=== PATIENT | male | born 1955 | race Caucasian/White ===

== ENCOUNTER 2016-10-05 10:45 | Day surgery (SDC) | payer BC ==
[2016-10-04 08:31] VITALS: BMI 33.0
[~2016-10-05 10:45] MED LIST: LACTATED RINGERS 1,000 ML IV SCH
[2016-10-05 12:09] VITALS: TEMP 97.8
[2016-10-05 12:10] LABS: Glucose,Whole Blood 110 mg/dL (75-99)
[2016-10-05] MEDS ORDERED: LIDOCAINE 1% 20 ML VIAL (10MG/ML) FOR IV START INTRADERMA ONE (12:10)
[2016-10-05] MEDS ORDERED: PROPOFOL 10 MG/ML 20 ML VIAL IV ONE (12:20)
[2016-10-05] MEDS ORDERED: LIDOCAINE 1% INJ 10MG/ML (20 ML MDV) ONE (12:20)
--- NOTE | 2016-10-05 13:02 | P.PCN ---
Date of Procedure: 10/05/16 Procedure(s) Performed: Procedure: Total colonoscopy. Preoperative diagnosis: Intermittent rectal bleeding. Postoperative diagnosis: 1. Low-grade internal hemorrhoids without bleeding at the time of this exam. 2. Less than ideal preparation, otherwise, exam to the cecum show no obvious abnormalities. Preparation: HalfLytely prep. Sedation: Was provided by anesthesia. Brief clinical history: The patient is a 60-year-old male who is referred for this evaluation because of intermittent rectal bleeding. His prior examination with me was around 10 years ago. He has no other abdominal complaints or anemia. Procedure: With the patient on his left lateral decubitus position and after informed consent and adequate sedation, the perianal area was inspected and it did not show any fissures or fistulas. There were no masses felt on digital rectal examination. The Olympus CFQ 160L video colonoscope was then inserted in the rectum in the usual fashion and advanced to the cecum. The preparation was less than ideal and I spent some time trying to clean the bowel wall. There was no obvious polyps or tumors seen. The mucosa where visualized appeared healthy. No obvious diverticular disease noted. I retroflexed the endoscope in the rectum before the endoscope was withdrawn. Low-grade internal hemorrhoids were noted but that did not show any evidence of bleeding. The patient tolerated the procedure well. Plan: The patient was reassured. Discussed dietary measures and local care for hemorrhoids. With his less than ideal preparation, I would consider repeating this exam in 5-7 years. He will follow up with you as planned.
[2016-10-05 13:16] VITALS: BP 146/90; PULSE 57; RESP 16
== END 2016-10-05 13:46 | disposition home or self-care (01) ==
LOC: ORWHC2ENDO 10:45
DX: K64.8 Other hemorrhoids (principal); K62.5 Hemorrhage of anus and rectum; I10 Essential (primary) hypertension; G47.33 Obstructive sleep apnea (adult) (pediatric); Z99.89 Dependence on other enabling machines and devices; Z87.891 Personal history of nicotine dependence; E11.9 Type 2 diabetes mellitus without complications; Z79.4 Long term (current) use of insulin; Z95.1 Presence of aortocoronary bypass graft
CPT/HCPCS: 45378; J2001; J2704

== ENCOUNTER → 2017-09-17 | Outpatient (CLI) | payer BC ==
--- NOTE | 2017-09-17 16:54 | CT ---
EXAMINATION TYPE: CT abdomen pelvis wo con DATE OF EXAM: 09/17/2017 COMPARISON: NONE HISTORY: 61-year-old male Bilateral flank pain CT DLP: 1349.7 mGycm. Automated exposure control for dose reduction was used. TECHNIQUE: Contiguous axial scanning of the abdomen and pelvis without IV contrast. Coronal and sagit wild reconstructions performed. FINDINGS: The heart is normal size without pericardial effusion. Some hazy areas of atelectasis at the peripher al left lung base. No pleural effusion. Noncontrast appearance of the liver, gallbladder, adrenal glands, right kidney, spleen, and pancreas appear within normal limits. Punctate 2 mm nonobstructive calculus upper pole left kidney. No dilated small bowel, free fluid, or free air. No mesenteric or retroperitoneal lymphadenopathy. Appendix is normal. Moderate stool burden. No pericolonic inflammatory change. Tiny fatty umbilical hernia. Bladder is urine distended. However, there is a mural based soft tissue mass along the left posterior bladder wall measuring up to 4.3 x 3.0 cm. Prostate gland mildly enlarged at 5.2 cm wide with central prostatic calcifications. Bilateral fatty inguinal hernias. No abnormal fluid collection in the pelvis or pelvic lymphadenopathy. Bones: Small bone islands within the left pubic bone. Moderate degenerative changes at the hips. Dege nerative disc disease mid to lower lumbar spine. No osseous destructive process. IMPRESSION: 1. Findings suggest underlying intraluminal bladder mass along the left posterior bladder wall. Urot helial carcinoma remains to be excluded. Correlate with urinalysis, urine cytology, and direct visual ization. Ultrasound may be helpful to confirm. 2. Punctate 2 mm nonobstructive left renal calculus. 3. Mild prostatomegaly (5.2 cm wide).
== END | disposition home or self-care (01) ==
LOC: RADCTMAIN 15:51
PROVIDERS: ATTEND Internal Medicine
DX: N20.0 Calculus of kidney (principal); N40.0 Benign prostatic hyperplasia without lower urinary tract symptoms
CPT/HCPCS: 74176

== ENCOUNTER → 2017-09-25 | Outpatient (CLI) | payer BC ==
[2017-09-25 09:40] LABS: Blood Urea Nitrogen 19 mg/dL (9-20)
--- NOTE | 2017-09-25 15:00 | CT ---
EXAMINATION TYPE: CT abdomen pelvis w con DATE OF EXAM: 09/25/2017 COMPARISON: CT abdomen and pelvis from 8 days ago. HISTORY: Gross hematuria CT DLP: 2586.90 mGycm, Automated Exposure Control for Dose Reduction was Utilized. CONTRAST: CT scan of the abdomen and pelvis is performed with oral and with IV Contrast, patient injected with 100 ml mL of Omnipaque 300. FINDINGS: LUNG BASES: No significant abnormality is appreciated. LIVER/GB: No significant abnormality is appreciated. PANCREAS: No significant abnormality is seen. SPLEEN: No significant abnormality is seen. ADRENALS: No significant abnormality is seen. KIDNEYS: There is symmetric cortical medullary uptake and excretion from both kidneys without evidenc e of concerning renal mass or hydronephrosis bilaterally. There is however eccentric 3.6 x 2.6 cm pos terior left sided bladder wall mass or neoplasm redemonstrated. This is near level of left UVJ but is not causing significant left-sided obstruction or hydroureter/hydronephrosis. Delayed imaging throug h bladder was not performed to best evaluate UVJ. BOWEL: Oral contrast reaches level of right colon. There is no suspicious small or large bowel dilata tion. There is some redundancy of sigmoid colon. PROSTATE/SEMINAL VESICLES: Some central zone calcifications left of midline in normal size prostate g land are present. LYMPH NODES: No greater than 1cm abdominal or pelvic lymph nodes are appreciated. OSSEOUS STRUCTURES: Mild to moderate multilevel spurring in the thoracolumbar spine is again seen. OTHER: There are small fat-containing inguinal hernias bilaterally redemonstrated. IMPRESSION: Persistent suspicious posterior lateral left bladder wall mass worrisome for neoplasm giv en patient history. Not causing delayed excretion or left-sided hydronephrosis. No definitive additio nal suspicious renal lesions identified.
== END | disposition home or self-care (01) ==
LOC: RADCTMAIN 09:00
PROVIDERS: ATTEND Urology
DX: R31.0 Gross hematuria (principal)
CPT/HCPCS: 82565; 84520; 74177; 36415; Q9967

== ENCOUNTER 2017-11-15 23:43 | Emergency (ER) | payer BC ==
[2017-11-15 23:49] VITALS: BP 180/98; PULSE 93; RESP 24; TEMP 98.8
--- NOTE | 2017-11-15 23:52 | ED ---
General Adult HPI - General Chief complaint: Urogenital Stated complaint: post op pain Time Seen by Provider: 11/15/17 23:51 Source: patient, family () Mode of arrival: ambulatory Limitations: no limitations - History of Present Illness Initial comments: She presents with left flank pain. Patient states she had surgery on his bladder 3 weeks ago to remove cancer. States he had a second procedure to clean out more today. Patient was discharged home with indwelling Stuart catheter. Patient states he has been draining clear yellow urine into the catheter, but feels like it is less than normal. Denies hematuria. Denies nausea, vomiting, fevers, chills. Patient states he had a normal bowel movement today. Denies constipation or diarrhea. Denies abdominal pain. Denies penile discharge. Eyes penile, testicular, scrotal pain. - Related Data Home Medications Medication Instructions Recorded Confirmed Aspirin [Adult Low Dose Aspirin EC] 81 mg PO DAILY 10/04/16 10/04/16 Enalapril [Vasotec] 10 mg PO DAILY 10/04/16 10/05/16 Insulin Glargine,Hum.rec.anlog 35 units SQ QAM 10/04/16 10/05/16 [Toujeo Solostar] Multivitamins, Thera [Multivitamin 1 tab PO DAILY 10/04/16 10/04/16 (formulary)] amLODIPine [Norvasc] 2.5 mg PO DAILY 10/04/16 10/05/16 Previous Rx's Medication Instructions Recorded Cephalexin [Keflex] 500 mg PO Q12HR 14 Days #28 cap 11/16/17 HYDROcodone/APAP 7.5-325MG [[place] 1 tab PO Q4H PRN 2 Days #8 tab 11/16/17 7.5-325] Ibuprofen [Motrin] 600 mg PO Q6HR PRN #20 tab 11/16/17 Allergies Allergy/AdvReac Type Severity Reaction Status Date / Time No Known Allergies Allergy Verified 11/15/17 23:48 Review of Systems ROS Statement: Those systems with pertinent positive or pertinent negative responses have been documented in the HPI. ROS Other: All systems not noted in ROS Statement are negative. Constitutional: Denies: fever, chills, weakness Eyes: Denies: vision change ENT: Denies: congestion Respiratory: Denies: dyspnea Cardiovascular: Denies: chest pain, palpitations Endocrine: Denies: fatigue Gastrointestinal: Denies: abdominal pain, nausea, vomiting, diarrhea, constipation Genitourinary: Reports: as per HPI. Denies: frequency, hematuria, discharge, testicular pain Musculoskeletal: Reports: as per HPI, other (flank pain) Skin: Denies: rash Neurological: Denies: headache, weakness, numbness Psychiatric: Denies: anxiety Past Medical History Past Medical History: Diabetes Mellitus, Hypertension, Sleep Apnea/CPAP/BIPAP Additional Past Medical History / Comment(s): USES C-PAP, CONSTIPATION, BLOOD IN STOOL. History of Any Multi-Drug Resistant Organisms: None Reported Past Surgical History: Bladder Surgery, Orthopedic Surgery Additional Past Surgical History / Comment(s): SHOULDER SURGERY, ARTHROSCOPIC KNEE SURGERY, GANGLION CYST WRIST., COLONOSCOPY. Past Anesthesia/Blood Transfusion Reactions: No Reported Reaction, Motion Sickness Past Psychological History: No Psychological Hx Reported Smoking Status: Former smoker Past Alcohol Use History: Occasional Past Drug Use History: None Reported - Past Family History Mother Family Medical History: Cancer Additional Family Medical History / Comment(s): BREAST CANCER Brother(s) Family Medical History: Cancer Additional Family Medical History / Comment(s): PROSTATE CANCER Sister(s) Family Medical History: Cancer Additional Family Medical History / Comment(s): ESOPHAGEAL CANCER General Exam - General Exam Comments Initial Comments: Sitting up in bed. No acute distress. Conversing normally. Calm, pleasant. Not appear in pain. Well-appearing. Not appear ill. Limitations: no limitations General appearance: alert, in no apparent distress Head exam: Present: atraumatic, normocephalic Eye exam: Present: normal appearance, PERRL, EOMI ENT exam: Present: mucous membranes moist Neck exam: Present: normal inspection Respiratory exam: Present: normal lung sounds bilaterally. Absent: respiratory distress, wheezes, rales Cardiovascular Exam: Present: regular rate, normal rhythm GI/Abdominal exam: Present: soft, normal bowel sounds. Absent: distended, tenderness, guarding, rebound exam: Present: other (Stuart catheter in place. Draining clear yellow urine. No blood in urine. No blood or discharge around the catheter at the meatus.) . Absent: urethral discharge, scrotal swelling, circumcision Back exam: Absent: CVA tenderness (R), CVA tenderness (L), paraspinal tenderness , vertebral tenderness Neurological exam: Present: alert, oriented X3 Psychiatric exam: Present: normal affect, normal mood Skin exam: Present: warm, dry, intact, normal color. Absent: rash, erythema Course Vital Signs 11/15/17 23:45 Temperature 98.8 F Pulse Rate 93 Respiratory 24 Rate Blood Pressure 180/98 O2 Sat by Pulse 95 Oximetry Medical Decision Making - Medical Decision Making IV fluids, morphine given. BUN mildly elevated, IV fluids given, decreased urination in Stuart catheter that patient reports maybe secondary to dehydration. Patient states he has been drinking less water today since his procedure. Cr within normal range UA shows possible infection, Rocephin given prescription Keflex given. Patient follow-up with urologist. Urine culture sent to confirm. Patient reevaluated, states pain controlled, feels comfortable being discharged home with no significant abnormalities and ultrasound. We will await results of ultrasound. Renal ultrasound "unremarkable". Patient instructed to follow up with his urologist in the morning for further recommendations. Return to ER for new or worsening symptoms. Stuart catheter draining without difficulty in the ER. Patient did mention catheter was working better when he sits on the toilet. Patient may have positional catheter vs spincter/bladder spasms. Patient understand and agree with plan. All questions answered. Patient request pain medications for home, prescription Motrin given, 2 days of [place] given. - Lab Data Result diagrams: 11/16/17 00:16 11/16/17 00:16 Lab Results 11/16/17 11/16/17 11/16/17 Range/Units 00:16 00:16 00:16 WBC 9.5 (3.8-10.6) k/uL RBC 5.23 (4.30-5.90) m/uL Hgb 15.4 (13.0-17.5) gm/dL Hct 44.1 (39.0-53.0) % MCV 84.2 (80.0-100.0) fL MCH 29.5 (25.0-35.0) pg MCHC 35.0 (31.0-37.0) g/dL RDW 12.5 (11.5-15.5) % Plt Count 184 (150-450) k/uL Neutrophils % 82 % Lymphocytes % 10 % Monocytes % 4 % Eosinophils % 2 % Basophils % 0 % Neutrophils # 7.8 H (1.3-7.7) k/uL Lymphocytes # 1.0 (1.0-4.8) k/uL Monocytes # 0.4 (0-1.0) k/uL Eosinophils # 0.2 (0-0.7) k/uL Basophils # 0.0 (0-0.2) k/uL Sodium 140 (137-145) mmol/L Potassium 4.4 (3.5-5.1) mmol/L Chloride 104 (98-107) mmol/L Carbon Dioxide 24 (22-30) mmol/L Anion Gap 12 mmol/L BUN 25 H (9-20) mg/dL Creatinine 1.00 (0.66-1.25) mg/dL Est GFR (CKD-EPI)AfAm >90 (>60 ml/min/1.73 sqM) Est GFR (CKD-EPI)NonAf 82 (>60 ml/min/1.73 sqM) Glucose 192 H (74-99) mg/dL Calcium 9.8 (8.4-10.2) mg/dL Urine Color Light Yellow Urine Appearance Clear (Clear) Urine pH 5.0 (5.0-8.0) Ur Specific [place] 1.011 (1.001-1.035) Urine Protein 1+ H (Negative) Urine Glucose (UA) Negative (Negative) Urine Ketones Trace H (Negative) Urine Blood Moderate H (Negative) Urine Nitrite Negative (Negative) Urine Bilirubin Negative (Negative) Urine Urobilinogen <2.0 (<2.0) mg/dL Ur Leukocyte Esterase Moderate H (Negative) Urine RBC 19 H (0-5) /hpf Urine WBC 20 H (0-5) /hpf Urine Mucus Rare H (None) /hpf Disposition Clinical Impression: Flank pain, Genital herpes simplex, UTI (urinary tract infection) Disposition: HOME SELF-CARE Condition: Good Instructions: Urinary Tract Infection in Men (ED) Additional Instructions: Follow-up with your urologist in the morning. Return to ER if new or worsening symptoms. Prescriptions: Cephalexin [Keflex] 500 mg PO Q12HR 14 Days #28 cap HYDROcodone/APAP 7.5-325MG [[place] 7.5-325] 1 tab PO Q4H PRN 2 Days #8 tab PRN Reason: Severe Pain Ibuprofen [Motrin] 600 mg PO Q6HR PRN #20 tab PRN Reason: Pain Is patient prescribed a controlled substance at d/c from ED?: Yes If prescribed controlled substance>3 days was MAPS reviewed?: No When asked, does pt state using other controlled substances?: No Referrals: Abe Rodriguez MD [Primary Care Provider] - 1-2 days
[2017-11-15] MEDS ORDERED: MORPHINE SULFATE 4 MG/ML SYRINGE IVP ONE (23:57)
[2017-11-16 00:29] LABS: Basophils % (A) 0 %; Eosinophils # (A) 0.2 k/uL (0-0.7); Eosinophils % (A) 2 %; HCT 44.1 % (39.0-53.0); HGB 15.4 gm/dL (13.0-17.5); Lymphocytes % (A) 10 %; MCH 29.5 pg (25.0-35.0); MCV 84.2 fL (80.0-100.0); Mean Platelet Volume 7.6; Monocytes # (A) 0.4 k/uL (0-1.0); Monocytes % (A) 4 %; Neutrophils # (A) 7.8 k/uL (1.3-7.7); Neutrophils % (A) 82 %; Platelet Count 184 k/uL (150-450); RBC 5.23 m/uL (4.30-5.90); RDW 12.5 % (11.5-15.5); WBC 9.5 k/uL (3.8-10.6)
[2017-11-16 00:35] LABS: Appearance,Urine Clear (Clear); Bilirubin,Urine Negative (Negative); Blood,Urine Moderate (Negative); Color,Urine Light Yellow; Glucose,Urine (UA) Negative (Negative); Ketones,Urine Trace (Negative); Leukocyte Esterase,Urine Moderate (Negative); Mucus,Urine Rare /hpf; Nitrite,Urine Negative (Negative); Protein,Urine 1+ (Negative); RBC,Urine 19 /hpf (0-5); Specific Gravity,Urine 1.011 (1.001-1.035); Urobilinogen,Urine <2.0 mg/dL (<2.0); WBC,Urine 20 /hpf (0-5)
[2017-11-16 00:40] LABS: Anion Gap 12 mmol/L; Blood Urea Nitrogen 25 mg/dL (9-20); Calcium 9.8 mg/dL (8.4-10.2); Carbon Dioxide 24 mmol/L (22-30); Chloride 104 mmol/L (98-107); Glucose 192 mg/dL (74-99); Potassium 4.4 mmol/L (3.5-5.1); Sodium 140 mmol/L (137-145)
[2017-11-16] MEDS ORDERED: cefTRIAXone IN SWFI 1,000 MG/10 ML SYRINGE IVP STA (00:51)
--- NOTE | 2017-11-16 01:28 | US ---
EXAM: US Retroperitoneal Limited, Renal CLINICAL HISTORY: Reason: Pain TECHNIQUE: Real-time ultrasound of the retroperitoneum (limited) with image documentation. COMPARISON: No relevant prior studies available. FINDINGS: Right kidney: Unremarkable. Right kidney measures 12.2 x 5.4 x 4.2 cm . No stones. No solid mass. No hydronephrosis. Left kidney: Unremarkable. Left kidney measures 12.7 x 6.3 x 5.0 cm. No stones. No solid mass. No hydronephrosis. IMPRESSION: Unremarkable ultrasound the kidneys
== END 2017-11-16 01:52 | disposition home or self-care (01) ==
LOC: EC 23:43
DX: N39.0 Urinary tract infection, site not specified (principal); A60.00 Herpesviral infection of urogenital system, unspecified; R79.89 Other specified abnormal findings of blood chemistry; I10 Essential (primary) hypertension; E11.9 Type 2 diabetes mellitus without complications; G47.30 Sleep apnea, unspecified; Z87.891 Personal history of nicotine dependence; Z79.4 Long term (current) use of insulin; Z79.82 Long term (current) use of aspirin; Z79.899 Other long term (current) drug therapy; Z85.51 Personal history of malignant neoplasm of bladder; Z98.890 Other specified postprocedural states; Z99.89 Dependence on other enabling machines and devices
CPT/HCPCS: 36415; 80048; 85025; 81001; 87086; 76770; 99284; 96375; 96374; 51702; J2270; J0696

== ENCOUNTER → 2019-04-03 | Outpatient (CLI) | payer BC ==
--- NOTE | 2019-04-04 07:37 | US ---
EXAMINATION TYPE: US kidneys/renal and bladder DATE OF EXAM: 04/03/2019 COMPARISON: NONE CLINICAL HISTORY: E27.9 Adrenal Cyst. EXAM MEASUREMENTS: Right Kidney: 12.5 x 5.4 x 5.3 cm Left Kidney: 12.5 x 5.5 x 5.3 cm Patient of large body habitus. Right Kidney: No hydronephrosis or masses seen Left Kidney: No hydronephrosis or masses seen Bladder: wnl IMPRESSION: Normal renal ultrasound
== END | disposition home or self-care (01) ==
LOC: RADUSWWP 12:21
PROVIDERS: ATTEND Internal Medicine
DX: E27.8 Other specified disorders of adrenal gland (principal)
CPT/HCPCS: 76770

== ENCOUNTER → 2020-10-08 | Outpatient (CLI) | payer BC ==
--- NOTE | 2020-10-08 15:52 | XR ---
Right hip HISTORY: Trauma 3 weeks prior, pain 2 views the right hip There is some marginal spurring, joint space loss, subchondral geode formation. Alignment is maintain ed. No fracture or dislocation. IMPRESSION: Osteoarthritis.
== END | disposition home or self-care (01) ==
LOC: RADXRMAIN 09:40
PROVIDERS: ATTEND Internal Medicine
DX: M16.11 Unilateral primary osteoarthritis, right hip (principal)
CPT/HCPCS: 73502

== ENCOUNTER → 2021-06-03 | Outpatient (CLI) | payer BC ==
--- NOTE | 2021-06-03 15:25 | US ---
EXAMINATION TYPE: US kidneys/renal and bladder DATE OF EXAM: 06/03/2021 COMPARISON: 04/03/[address] abdomen and pelvis September 25, 2017 CLINICAL HISTORY: C67.9 bladder cancer. EXAM MEASUREMENTS: Right Kidney: 12.9x6.1x6.0 cm Left Kidney: 12.9x6.0x6.5 cm Right Kidney: Exophytic ? cyst inferior 1.2x0.9x0.8cm Left Kidney: No hydronephrosis or masses seen Bladder: wnl Bilateral Jets seen: Yes There is no evidence for hydronephrosis at this point in time. No nephrolithiasis is seen. Technolog ist [place] near 1.0 cm exophytic anechoic to hypoechoic round lesion or pole of the right kidney favor ing benign thin-walled cyst but too small to definitively characterize. The urinary bladder is satis factorily distended. Bilateral ureteral jets are seen. IMPRESSION: No worrisome recurrent intraluminal mass in bladder or suspicious wall thickening.
== END | disposition home or self-care (01) ==
LOC: RADUSWWP 13:43
PROVIDERS: ATTEND Urology
DX: C67.9 Malignant neoplasm of bladder, unspecified (principal)
CPT/HCPCS: 76770

== ENCOUNTER 2021-11-01 10:19 | Emergency (ER) | payer BC ==
[2021-11-01 10:39] VITALS: TEMP 98.3
[2021-11-01 11:34] LABS: Basophils # (A) 0.1 k/uL (0-0.2); Basophils % (A) 1 %; Eosinophils # (A) 0.1 k/uL (0-0.7); Eosinophils % (A) 2 %; HCT 47.5 % (39.0-53.0); HGB 16.3 gm/dL (13.0-17.5); Lymphocytes # (A) 1.5 k/uL (1.0-4.8); Lymphocytes % (A) 16 %; MCH 30.9 pg (25.0-35.0); MCHC 34.2 g/dL (31.0-37.0); MCV 90.2 fL (80.0-100.0); Mean Platelet Volume 8.2; Monocytes # (A) 0.4 k/uL (0-1.0); Monocytes % (A) 4 %; Neutrophils # (A) 7.3 k/uL (1.3-7.7); Neutrophils % (A) 77 %; Platelet Count 223 k/uL (150-450); RBC 5.27 m/uL (4.30-5.90); RDW 12.4 % (11.5-15.5); WBC 9.4 k/uL (3.8-10.6)
[2021-11-01 11:46] LABS: ALT 17 U/L (4-49); AST 26 U/L (17-59); African American GFR (CKD) >90 (>60 ml/min/1.73 sqM); Albumin 4.4 g/dL (3.5-5.0); Alkaline Phosphatase 66 U/L (38-126); Anion Gap 9 mmol/L; Blood Urea Nitrogen 12 mg/dL (9-20); Calcium 9.3 mg/dL (8.4-10.2); Carbon Dioxide 26 mmol/L (22-30); Chloride 105 mmol/L (98-107); Glucose 109 mg/dL (74-99); Non-African American GFR(CKD) 88 (>60 ml/min/1.73 sqM); Potassium 4.4 mmol/L (3.5-5.1); Sodium 140 mmol/L (137-145); Total Bilirubin 0.9 mg/dL (0.2-1.3); Total Protein 7.8 g/dL (6.3-8.2)
[2021-11-01 11:56] LABS: INR 0.9 (<1.2); Partial Thromboplastin Time 24.9 sec (22.0-30.0); Prothrombin Time 10.4 sec (9.0-12.0)
[2021-11-01 12:00] VITALS: RESP 18
--- NOTE | 2021-11-01 13:21 | XR ---
EXAMINATION TYPE: XR chest 2V DATE OF EXAM: 11/01/2021 COMPARISON: Chest x-ray 08/30/2010 HISTORY: Palpitations and dizziness TECHNIQUE: Frontal and lateral views of the chest are obtained. FINDINGS: There is no focal air space opacity, pleural effusion, or pneumothorax seen. The cardiac silhouette size is within normal limits. There is eventration of the right hemidiaphragm. The osseo us structures are intact. IMPRESSION: No acute cardiopulmonary process.
[2021-11-01 13:38] VITALS: BP 141/81; PULSE 65
--- NOTE | 2021-11-01 14:25 | CT ---
EXAMINATION TYPE: CT brain jose angel ya DATE OF EXAM: 11/01/2021 COMPARISON: NONE HISTORY: head injury with headache and neck pain CT DLP: 1868.2 mGycm. Automated Exposure Control for Dose Reduction was Utilized. TECHNIQUE: CT scan of the head and cervical spine are performed without contrast. FINDINGS: There is no acute intracranial hemorrhage or midline shift identified. The mild ventricu lar and sulcal prominence. Mild low attenuation in the periventricular white matter. The calvarium i s intact. Some artifact at level of skull base. The globes are intact and the visualized sinuses are clear. Cervical spine is visualized in its entirety from C1 through upper thoracic levels and demonstrates l evoconvex scoliosis centered in the upper thoracic spine without evidence of acute fracture or disloc ation. Prevertebral soft tissue appears within normal limits. The C1-C2 articulation is within norm al limits on the coronal images. Vertebral body heights are maintained. Moderate disc space narrowing C3-C4 level. Moderate disc space narrowing C5-C6 and C6-C7 levels with moderate anterior spurring. P osterior spur disc complexes efface the anterior thecal sac C5-C6 and C6-C7 levels. Review of axial i mages shows subcentimeter right thyroid nodule axial image 74. Lung apices show no pneumothorax. IMPRESSION: 1. There is no acute fracture or dislocation evident in the cervical spine. 2. No acute intracranial hemorrhage or midline shift is seen.
--- NOTE | 2021-11-01 14:27 | ED ---
General Adult HPI - General Chief complaint: Arrhythmia/Palpitations Stated complaint: Afib Time Seen by Provider: 11/01/21 12:00 Source: patient Mode of arrival: ambulatory Limitations: no limitations - History of Present Illness Initial comments: 65-year-old male with past history of diabetes and hypertension presents to the emergency department with palpitations. Patient reports that he was at work today when he had sudden sensation that he was given a pass out. He felt very lightheaded with palpitations. His was able to check his heart rate and she thought that his heart was skipping a beat. They called the primary care clinic who recommended that he come into the emergency department for further evaluation. He denies history of irregular heart rhythms. No history of coronary disease. Denies any chest pain one episode happened. No shortness of breath. He denies any headaches or visual changes. No recent medication changes. Symptoms are positional in nature. No recent illnesses. No fevers or chills. No other alleviating, precipitating or modifying factors - Related Data Home Medications Medication Instructions Recorded Confirmed Multivitamins, Thera [Multivitamin 1 tab PO DAILY 10/04/16 11/01/21 (formulary)] amLODIPine [Norvasc] 2.5 mg PO DAILY 10/04/16 11/01/21 Aspirin EC [Ecotrin] 325 mg PO DAILY 11/01/21 11/01/21 Calcium Carbonate [Calcium] 600 mg PO DAILY 11/01/21 11/01/21 Enalapril [Vasotec] 20 mg PO DAILY 11/01/21 11/01/21 Insulin Degludec [Tresiba 60 units SQ DAILY 11/01/21 11/01/21 Flextouch U-100 Pen] Rosuvastatin Calcium [Crestor] 5 mg PO HS 11/01/21 11/01/21 Ubidecarenone [Co Q-10] 100 mg PO DAILY 11/01/21 11/01/21 metFORMIN HCL [Glucophage] 1,000 mg PO DAILY 11/01/21 11/01/21 metFORMIN HCL [Glucophage] 500 mg PO HS 11/01/21 11/01/21 Allergies Allergy/AdvReac Type Severity Reaction Status Date / Time No Known Allergies Allergy Verified 11/01/21 13:21 Review of Systems ROS Statement: Those systems with pertinent positive or pertinent negative responses have been documented in the HPI. ROS Other: All systems not noted in ROS Statement are negative. Past Medical History Past Medical History: Diabetes Mellitus, Hypertension, Sleep Apnea/CPAP/BIPAP Additional Past Medical History / Comment(s): USES C-PAP, CONSTIPATION, BLOOD IN STOOL. History of Any Multi-Drug Resistant Organisms: None Reported Past Surgical History: Bladder Surgery, Orthopedic Surgery Additional Past Surgical History / Comment(s): SHOULDER SURGERY, ARTHROSCOPIC KNEE SURGERY, GANGLION CYST WRIST., COLONOSCOPY. Past Anesthesia/Blood Transfusion Reactions: No Reported Reaction, Motion Sickness Past Psychological History: No Psychological Hx Reported Smoking Status: Never smoker Past Alcohol Use History: Occasional Past Drug Use History: None Reported - Past Family History Mother Family Medical History: Cancer Additional Family Medical History / Comment(s): BREAST CANCER Brother(s) Family Medical History: Cancer Additional Family Medical History / Comment(s): PROSTATE CANCER Sister(s) Family Medical History: Cancer Additional Family Medical History / Comment(s): ESOPHAGEAL CANCER General Exam Limitations: no limitations General appearance: alert, in no apparent distress Course Vital Signs 11/01/21 11/01/21 11/01/21 10:36 11:59 13:36 Temperature 98.3 F Pulse Rate 70 62 Pulse Rate [ 72 Sitting] Pulse Rate [ 77 Standing] Pulse Rate [ 65 Supine] Respiratory 20 18 Rate Blood Pressure 163/72 145/93 Blood Pressure 138/80 [Sitting] Blood Pressure 141/77 [Standing] Blood Pressure 141/81 [Supine] O2 Sat by Pulse 97 98 Oximetry EKG Findings - EKG Comments: EKG Findings:: EKG demonstrates a sinus rhythm with a rate of 74. CT interval 150. QRS 99. QTC of 419. No acute ST segment elevations or depressions. There is a PVC present. Medical Decision Making - Medical Decision Making Upon arrival patient was placed into room 28. A thorough history and physical exam was performed. Patient does have some PVCs noted on bedside monitor. IV is established and laboratory studies were conducted. Chest x-ray was performed. I reviewed the patient's laboratory studies which are within normal limits. Chest x-ray demonstrates no acute process. I did discuss the results w ith the patient. He does further mentioned that this weekend he was drinking beers wall in the hot tub. He attempted to get out when he fell and hit his head. He was unsure if he had injuries related to his symptoms. Because of this he is sent back over for a CT of his head which does not demonstrate acute intracranial process. This is discussed with the patient. He will be referred back to his primary care office for Holter monitoring. Patient understood. Requested to return for any new or worsening symptoms. Patient was discharged home in stable condition - Lab Data Result diagrams: 11/01/21 10:56 11/01/21 10:56 Lab Results 11/01/21 11/01/21 11/01/21 Range/Units 10:56 10:56 10:56 WBC 9.4 (3.8-10.6) k/uL RBC 5.27 (4.30-5.90) m/uL Hgb 16.3 (13.0-17.5) gm/dL Hct 47.5 (39.0-53.0) % MCV 90.2 (80.0-100.0) fL MCH 30.9 (25.0-35.0) pg MCHC 34.2 (31.0-37.0) g/dL RDW 12.4 (11.5-15.5) % Plt Count 223 (150-450) k/uL MPV 8.2 Neutrophils % 77 % Lymphocytes % 16 % Monocytes % 4 % Eosinophils % 2 % Basophils % 1 % Neutrophils # 7.3 (1.3-7.7) k/uL Lymphocytes # 1.5 (1.0-4.8) k/uL Monocytes # 0.4 (0-1.0) k/uL Eosinophils # 0.1 (0-0.7) k/uL Basophils # 0.1 (0-0.2) k/uL PT 10.4 (9.0-12.0) sec INR 0.9 (<1.2) APTT 24.9 (22.0-30.0) sec Sodium 140 (137-145) mmol/L Potassium 4.4 (3.5-5.1) mmol/L Chloride 105 (98-107) mmol/L Carbon Dioxide 26 (22-30) mmol/L Anion Gap 9 mmol/L BUN 12 (9-20) mg/dL Creatinine 0.92 (0.66-1.25) mg/dL Est GFR (CKD-EPI)AfAm >90 (>60 ml/min/1.73 sqM) Est GFR (CKD-EPI)NonAf 88 (>60 ml/min/1.73 sqM) Glucose 109 H (74-99) mg/dL Calcium 9.3 (8.4-10.2) mg/dL Magnesium (1.6-2.3) mg/dL Total Bilirubin 0.9 (0.2-1.3) mg/dL AST 26 (17-59) U/L ALT 17 (4-49) U/L Alkaline Phosphatase 66 (38-126) U/L Troponin I (0.000-0.034) ng/mL Total Protein 7.8 (6.3-8.2) g/dL Albumin 4.4 (3.5-5.0) g/dL TSH (0.465-4.680) mIU/L 11/01/21 11/01/21 Range/Units 10:56 10:56 WBC (3.8-10.6) k/uL RBC (4.30-5.90) m/uL Hgb (13.0-17.5) gm/dL Hct (39.0-53.0) % MCV (80.0-100.0) fL MCH (25.0-35.0) pg MCHC (31.0-37.0) g/dL RDW (11.5-15.5) % Plt Count (150-450) k/uL MPV Neutrophils % % Lymphocytes % % Monocytes % % Eosinophils % % Basophils % % Neutrophils # (1.3-7.7) k/uL Lymphocytes # (1.0-4.8) k/uL Monocytes # (0-1.0) k/uL Eosinophils # (0-0.7) k/uL Basophils # (0-0.2) k/uL PT (9.0-12.0) sec INR (<1.2) APTT (22.0-30.0) sec Sodium (137-145) mmol/L Potassium (3.5-5.1) mmol/L Chloride (98-107) mmol/L Carbon Dioxide (22-30) mmol/L Anion Gap mmol/L BUN (9-20) mg/dL Creatinine (0.66-1.25) mg/dL Est GFR (CKD-EPI)AfAm (>60 ml/min/1.73 sqM) Est GFR (CKD-EPI)NonAf (>60 ml/min/1.73 sqM) Glucose (74-99) mg/dL Calcium (8.4-10.2) mg/dL Magnesium 2.0 (1.6-2.3) mg/dL Total Bilirubin (0.2-1.3) mg/dL AST (17-59) U/L ALT (4-49) U/L Alkaline Phosphatase (38-126) U/L Troponin I <0.012 (0.000-0.034) ng/mL Total Protein (6.3-8.2) g/dL Albumin (3.5-5.0) g/dL TSH 0.870 (0.465-4.680) mIU/L Disposition Clinical Impression: Palpitations, PVC (premature ventricular contraction), Concussion without loss of consciousness Disposition: HOME SELF-CARE Condition: Stable Instructions (If sedation given, give patient instructions): Heart Palpitations (ED) Additional Instructions: I recommend that you see the [facility] and have Holter monitoring. Follow up with your primary doctor in 2-4 days. Return for any new or worsening symptoms Is patient prescribed a controlled substance at d/c from ED?: No Referrals: Anupam Greco MD [Primary Care Provider] - 1-2 days [facility] [Provider Group] - 1-2 days Time of Disposition: 14:27
== END 2021-11-01 14:42 | disposition home or self-care (01) ==
LOC: EC 10:19
DX: S06.0X0A Concussion without loss of consciousness, initial encounter (principal); I49.3 Ventricular premature depolarization; R00.2 Palpitations; E11.9 Type 2 diabetes mellitus without complications; I10 Essential (primary) hypertension; Z79.82 Long term (current) use of aspirin; Z79.4 Long term (current) use of insulin; Z79.84 Long term (current) use of oral hypoglycemic drugs; Z79.899 Other long term (current) drug therapy; X58.XXXA Exposure to other specified factors, initial encounter; Y99.0 Civilian activity done for income or pay
CPT/HCPCS: 36415; 70450; 71046; 72125; 80053; 83735; 84443; 84484; 85025; 85610; 85730; 93005; 99285

== ENCOUNTER → 2023-07-06 | Outpatient (CLI) | payer BC ==
--- NOTE | 2023-07-06 08:42 | US ---
EXAMINATION TYPE: US Aorta Screening DATE OF EXAM: 07/06/2023 COMPARISON: 09/25/2017 CLINICAL INDICATION: Male, 67 years old with history of Z13.6 screening for AAA; Former smoker; Epiga stric pain x few months; HTN; Denies any other signs/symptoms/history TECHNIQUE: Multiple sonographic images of the abdominal aorta are obtained. 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
== END | disposition home or self-care (01) ==
LOC: RADUSWWP 06:44
PROVIDERS: ATTEND Internal Medicine
DX: Z13.6 Encounter for screening for cardiovascular disorders (principal); I10 Essential (primary) hypertension; R10.13 Epigastric pain; Z87.891 Personal history of nicotine dependence
CPT/HCPCS: 76706

== ENCOUNTER → 2024-10-14 | Outpatient (CLI) | payer BC, MEDICARE ==
--- NOTE | 2024-10-14 12:21 | CA ---
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 Cardiac Medications: Medications in past 24 hours: Contrast: Stress Results Protocol: Abdelrahman Total dose(mL): Exercise Duration (min:sec): 7;[address] Depression (mm): Angina Score: Carbone Score: METS: 8.5 Resting HR: 68 Resting BP: 141 / 68 Peak HR: 146 Peak BP: 205 / 76 Max Predicted HR: 153 95 % Max Predicted HR Target HR: 130 Double Product: [id number] Stress Summary: BP Response: Reason for Termination: MAX EXERTION/TARGET HR Cardiac Symptoms: NO SYMPTOMS ECG Analysis Resting ECG: Stress ECG: Arrhythmia: Echo Analysis Resting Echo: Peak Echo Analysis: MEASUREMENTS (Male/Female) Normal Values CONCLUSIONS Good exercise tolerance Normal electrocardiogram and echocardiogram in response to exercise Dr. Pelon Maldonado MD (Electronically Signed) Final Date: 14 October 2024 12:20
== END | disposition home or self-care (01) ==
LOC: RADNMMAIN 10:08
PROVIDERS: ATTEND Internal Medicine
DX: R07.9 Chest pain, unspecified (principal); I10 Essential (primary) hypertension; E11.9 Type 2 diabetes mellitus without complications; E78.5 Hyperlipidemia, unspecified; Z82.49 Family history of ischemic heart disease and other diseases of the circulatory system
CPT/HCPCS: 93351